=== PATIENT | female | born 1985 ===

== ENCOUNTER 2017-02-26 11:15 | Emergency (ER) | payer BC, OTHER ==
--- NOTE | 2017-02-26 12:17 | UC ---
GI Bleed HPI - HPI Summary HPI Summary: 31 year old female with concern for blood in stool. BLOODY STOOLS SINCE 0430 THIS AM. STATES SHE FEELS LIKE SHE HAS GAS. HAS HAD ABOUT 5 BMS THIS MORNING. STATES STOOL ARE LIKE DIARRHEA JUST LIQUID WITH MUCUS AND BLOOD. STATES FOWL SMELLING. DENIES DIZZINESS. Mild LLQ tenderness. No fever. No recent antibiotic. no recent travel. no uncooked or under cooked meat [ End ] - History Of Current Complaint Chief Complaint: UCGI Stated Complaint: PERSONAL Time Seen by Provider: 02/26/17 12:14 Hx Obtained From: Patient Hx Last Menstrual Period: DOES NOT HAVE REG PERIODS, HAS THE MERINA IUD Onset/Duration: Sudden Onset Timing: Constant Severity: Blood-Streaked Stool, Bright Red Blood per Rectum Severity Initially: Moderate Severity Currently: Moderate Associated Pain: None Character: Not Applicable Aggravating Factor(s): Bowel Movement - Risk Factors GI Bleed Risk Factors: NSAIDS - excedrin 2 pills yesterday only 1 time - Allergies/Home medications Allergies/Adverse Reactions: Allergies Allergy/AdvReac Type Severity Reaction Status Date / Time No Known Allergies Allergy Verified 02/26/17 11:27 Home Medications: Home Medications Crtzpor-Koohonmkaynjz-Ckvwnkty [Excedrin Extra Strength] 2 tab PO PRN 02/26/17 [ History] Levonorgestrel (Iud) [Mirena IUD] 20 mcg IU 02/26/17 [History] PMH/Surg Hx/FS Hx/Imm Hx Previously Healthy: Yes Neurological History: Migraine - Surgical History Surgical History: Yes Surgery Procedure, Year, and Place: LEFT THYROID. REMOVAL OF FINGER NAILS A CHILD. TONSILLECTOMY - Family History Known Family History: Positive: None - Social History Occupation: Employed Full-time Lives: With Family Alcohol Use: None Substance Use Type: None Smoking Status (MU): Light Every Day Tobacco Smoker Type: Cigarettes Amount Used/How Often: 1/2 PPD Have You Smoked in the Last Year: Yes Household Exposure Type: Cigarettes Cessation Counseling: Patient Advised to Stop Review of Systems Gastrointestinal: Abdominal Pain, Diarrhea, Other - blood in stool Is Patient Immunocompromised?: No All Other Systems Reviewed And Are Negative: Yes Physical Exam Triage Information Reviewed: Yes Appearance: Well-Appearing, No Pain Distress, Well-Nourished Vital Signs: Initial Vital Signs Temp 98.6 F 02/26/17 11:28 Pulse 77 02/26/17 11:28 Resp 20 02/26/17 11:28 BP 121/74 02/26/17 11:28 Pulse Ox 99 02/26/17 11:28 Vital Signs Reviewed: Yes Eye Exam: Normal ENT Exam: Normal Dental Exam: Normal Neck exam: Normal Neck: Positive: 1 Respiratory Exam: Normal Cardiovascular Exam: Normal Abdominal Exam: Normal Abdomen Description: Positive: No Organomegaly, Soft, Other: - LLQ tenderness to palpation. Negative: CVA Tenderness (R), CVA Tenderness (L), Distended, Guarding Musculoskeletal Exam: Normal Neurological Exam: Normal Psychological Exam: Normal Skin Exam: Normal Re-Evaluation - Re-Evaluation First Eval Change: Unchanged Comment: Awaiting scan at this time. Feels the same. No acute concerns. Discussed plan that patient will likely be signed out to Vibha or likely Dr Rosas at this time as the work up not complete. She is aware and agreeable Bleed Course/Dx - Differential Dx/Diagnosis Differential Diagnosis/HQI/PQRI: Diverticulitis, Enterocolitis, Gastritis, PUD, Ulcerative Colitis Provider Diagnoses: Abdominal pain -- awaiting imaging results at this time and signed out to another provider Discharge - Discharge Plan Condition: Good Disposition: HOME Patient Education Materials: Rectal Bleeding (ED) Referrals: Surjit Phillip PA [Primary Care Provider] - 4 Days
[2017-02-26] MEDS ORDERED: Iohexol 300* (CONTRAST) 10 ML SDV IV ONE (15:16)
[2017-02-26 15:25] VITALS: BP 124/71
--- NOTE | 2017-02-26 15:38 | RAD ---
Indication: Abdominal pain. Hematochezia. Contrast: Administered 93.2 ml of OMNIPAQUE 300 mg/ml CT of the abdomen and pelvis was performed after oral and IV contrast administration. Coronal and sagittal reconstructed images were obtained. The lung bases demonstrate no pleural fluid, nodules or masses. Heart is of normal size without evidence of pericardial effusion. The liver is in size. No focal lesions or intrahepatic ductal dilatation is noted. The gallbladder demonstrates no calcified gallstones. No pericholecystic fluid or wall thickening is noted. The spleen is normal in size. No adrenal lesions are noted. The kidneys demonstrate symmetric nephrograms without focal lesions. No retroperitoneal adenopathy is noted. No dilated loops of bowel are noted. No adrenal lesions are noted. The kidneys demonstrate symmetric nephrograms. Large renal cyst is noted in the left lobe measuring up to 7.5. No dilated loops of bowel are noted. CT of the pelvis demonstrates thumbprinting and mucosal thickening of the colon. This is most prominent in the sigmoid and descending colon as well as in the splenic flexure. The possibility of colitis including ischemic or inflammatory should BE considered. Small bowel demonstrates no abnormal dilatation. The appendix is visualized and is normal. IUD is in place. Prominent left adnexa is noted likely overlying the left external iliac artery and vein. Small to moderate amount of free fluid is noted. IMPRESSION: Small to moderate amount of free fluid is noted in the pelvis. IUD in place. Thumbprinting and mucosal thickening of the descending colon, transverse colon sigmoid colon suspicious for colitis. Whether this represents infectious colitis or ischemic colitis cannot be easily determined. Pseudomembranous colitis is not excluded. Left renal cyst.
== END 2017-02-26 16:07 | disposition left against medical advice (07) ==
LOC: UCCORT 11:15
DX: R10.32 Left lower quadrant pain (principal); R19.7 Diarrhea, unspecified; K92.1 Melena; F17.210 Nicotine dependence, cigarettes, uncomplicated
CPT/HCPCS: 74177; 99203; G0463; Q9967